=== PATIENT | female | born 1970 | race American Indian/Alaskan Native ===

== ENCOUNTER 2017-03-04 09:09 | Outpatient (CLI) | payer BC ==
--- NOTE | 2017-03-04 10:07 | Mammography Report ---
Bilateral mammogram: Compared to 03/01/16. CAD study utilized. Findings: Bilateral dense breast parenchyma. No mass or microcalcification. Benign axillary nodes. Impression: Benign findings. Annual followup recommended. BI-RADS CATEGORY: 2 = Benign ACR BI-RADS MAMMOGRAPHIC CODES: 0 = Needs additional imaging evaluation; 1 = Negative; 2 = Benign; 3 = Probably benign; 4 = Suspicious; 5 = Malignant; 6 = Known biopsy-proven malignancy COMMENT: 1. Dense breast tissue, i.e., adenosis, fibrocystic changes, etc., may obscure an underlying neoplasm. 2. Approximately 10% of cancers are not detected with mammography. 3. A negative mammography report should not delay biopsy if a clinically suspicious mass is present. COMMENT: Patient follow-up letters are generated in [employer].
== END 2017-03-04 09:10 | disposition home or self-care (01) ==
LOC: MAMMO 09:09
PROVIDERS: ATTEND Obstetrics & Gynecology
DX: Z12.31 Encounter for screening mammogram for malignant neoplasm of breast (principal)
CPT/HCPCS: 77067; G0202

== ENCOUNTER 2018-12-29 19:09 | Emergency (ER) | payer BC ==
[2018-12-29] MEDS ORDERED: BOOSTRIX IM ONE ×2 (19:22→22:45)
[2018-12-29] MEDS ORDERED: IBUPROFEN PO ONE (19:22)
[2018-12-29] MEDS ORDERED: NACL 0.9% IR ONE (19:22)
--- NOTE | 2018-12-29 19:22 | Event Note ---
ED Screening Note ED Screening Note: RUNNING IN PARK LLE DOG BITE DOG NOT KNOWN NEEDS TDAP WOUND COVERED This initial assessment/diagnostic orders/clinical plan/treatment(s) is/are subject to change based on patients health status, clinical progression and re- assessment by fellow clinical providers in the ED. Further treatment and workup at subsequent clinical providers discretion. Patient/guardian urged not to elope from the ED as their condition may be serious if not clinically assessed and managed. Initial orders include:
[2018-12-29 19:47] VITALS: BP 131/75
[2018-12-29] MEDS ORDERED: PERCOCET 5/325 PO ONE (22:35)
[2018-12-29] MEDS ORDERED: RABAVERT RABIES VACCINE(PCEC) IM ONE (22:35)
[2018-12-29] MEDS ORDERED: ATIVAN PO ONE (22:35)
[2018-12-29] MEDS ORDERED: AUGMENTIN 875 MG PO ONE (22:35)
--- NOTE | 2018-12-29 23:03 | Emergency Department Report ---
ED Animal Bite HPI - General Chief Complaint: Animal Bite Stated Complaint: DOG BITE Time Seen by Provider: 12/29/18 19:21 Source: patient Mode of arrival: Ambulatory Limitations: No Limitations - History of Present Illness Initial Comments: 48-year-old -[place]alt[place] female presents to the emergency room for complaint of dog bite. Patient reports that she was in the park and she was attacked by unknown dog. Patient comes in with several lacerations/bite lennon to her left lower leg and one on her left buttocks. Patient reports no past medical history currently takes no medications on a daily basis and is allergic to Keflex. Patient reports is ABOUT 7 PM. PATIENT IS REQUESTING A TETANUS VACCINATION. Complaint: animal bite -: This evening Time: 18:00 Location: buttocks Left: Leg Animal: dog Animal Control Notified: No Description: unknown animal, immunizations unknown Mechanism: bite, scratch Pain Description: constant Severity scale (0 -10): 9 Context: unprovoked Associated Symptoms: bleeding - Related Data Patient Tetanus UTD: No Previous Rx's Medication Instructions Recorded Last Taken Type Acetaminophen/Codeine [Tylenol 1 tab PO Q6H PRN #12 tab 12/29/18 Unknown Rx /Codeine # 3 tab] Ciprofloxacin HCl [Ciprofloxacin 500 mg PO Q12HR 7 Days #14 tab 12/29/18 Unknown Rx TAB] Clindamycin [Clindamycin CAP] 150 mg PO Q8HR 7 Days #21 capsule 12/29/18 Unknown Rx Clindamycin [Clindamycin CAP] 300 mg PO Q8H 7 Days #21 cap 12/29/18 Unknown Rx Ibuprofen [Motrin 600 MG tab] 600 mg PO Q8H PRN #30 tablet 12/29/18 Unknown Rx Allergies Allergy/AdvReac Type Severity Reaction Status Date / Time cephalexin monohydrate Allergy Rash Unverified 03/01/16 09:21 [From Keflex] ED Review of Systems ROS: Stated complaint: DOG BITE Other details as noted in HPI Comment: All other systems reviewed and negative Skin: other (open wounds) ED Past Medical Hx - Past Medical History Previous Medical History?: No - Surgical History Past Surgical History?: Yes Additional Surgical History: D&C - Social History Smoking Status: Never Smoker Substance Use Type: None - Medications Home Medications: Home Medications Medication Instructions Recorded Confirmed Last Taken Type Acetaminophen/Codeine [Tylenol 1 tab PO Q6H PRN #12 tab 12/29/18 Unknown Rx /Codeine # 3 tab] Ciprofloxacin HCl [Ciprofloxacin 500 mg PO Q12HR 7 Days #14 tab 12/29/18 Unknown Rx TAB] Clindamycin [Clindamycin CAP] 150 mg PO Q8HR 7 Days #21 capsule 12/29/18 Unknown Rx Clindamycin [Clindamycin CAP] 300 mg PO Q8H 7 Days #21 cap 12/29/18 Unknown Rx Ibuprofen [Motrin 600 MG tab] 600 mg PO Q8H PRN #30 tablet 12/29/18 Unknown Rx ED Physical Exam - General Limitations: No Limitations General appearance: alert, in no apparent distress - Head Head exam: Present: atraumatic, normocephalic - Eye Eye exam: Present: normal appearance - ENT ENT exam: Present: mucous membranes moist - Neck Neck exam: Present: normal inspection - Neurological Exam Neurological exam: Present: alert, oriented X3 - Psychiatric Psychiatric exam: Present: normal affect, normal mood - Skin Skin exam: Present: warm, dry, intact, normal color. Absent: rash - Expanded Skin Exam Expanded Type of lesion: Present: laceration, bite/sting Distribution of rash: LLE Description of rash: Present: other (multiple lacerations and bite lennon.) ED Course Vital Signs 12/29/18 19:43 Temperature 98.6 F Pulse Rate 94 H Respiratory 16 Rate Blood Pressure 131/75 O2 Sat by Pulse 100 Oximetry Critical care attestation.: If time is entered above; I have spent that time in minutes in the direct care of this critically ill patient, excluding procedure time. ED Disposition Clinical Impression: Dog bite of extremity Disposition: DC-01 TO HOME OR SELFCARE Is pt being admited?: No Does the pt Need Aspirin: No Condition: Stable Additional Instructions: Please follow-up with your primary care provider or health department in 3 days to have units of rabies vaccination and then he will need to follow up in 7 days from initial date of bite and then 14 days. Please follow here: 01/01/1901/05/19 01/12/19 Complete antibiotics as prescribed and pain medication as needed. Prescriptions: Ciprofloxacin HCl [Ciprofloxacin TAB] 500 mg PO Q12HR 7 Days #14 tab Clindamycin [Clindamycin CAP] 150 mg PO Q8HR 7 Days #21 capsule Clindamycin [Clindamycin CAP] 300 mg PO Q8H 7 Days #21 cap Ibuprofen [Motrin 600 MG tab] 600 mg PO Q8H PRN #30 tablet PRN Reason: Pain Acetaminophen/Codeine [Tylenol /Codeine # 3 tab] 1 tab PO Q6H PRN #12 tab PRN Reason: Pain , Severe (7-10) Referrals: MATHIEU GRIER MD [Primary Care Provider] - 3-5 Days Forms: Work/School Release Form(ED) Medical Decision Making - Radiology Data Radiology results: report reviewed Patient: ROSSY MG MR#: [id number] : 1970 Acct:[id number] Age/Sex: 48 / F ADM Date: 12/29/18 Loc: ED Attending Dr: Ordering Physician: GABY TORRE Date of Service: 12/29/18 Procedure(s): XR tibia fibula 2V LT Accession Number(s): [id number] cc: GABY TORRE Fluoro Time In Minutes: PROCEDURE: XR TIBIA FIBULA 2V LT TECHNIQUE: Left tibia and fibula radiographs, AP and lateral views. HISTORY: dog bite COMPARISONS: None. FINDINGS: Fracture (s) and/or Dislocation(s): None. Joint space(s): Normal. Soft tissues: Irregular lacerations are noted involving the proximal lower leg. Bone mineralization: Normal. Foreign bodies: None. IMPRESSION: Soft tissue lacerations.. This document is electronically signed by Carol Rolon MD., December 29 2018 11:08:03 PM ET Transcribed By: [facility] Dictated By: CAROL ROLON Electronically Authenticated By: CAROL ROLON Signed Date/Time: 12/29/182309 DD/ 03 TD/TT: 12/29/182303 Patient: ROSSY MG MR#: [id number] : 1970 Acct:[id number] Age/Sex: 48 / F ADM Date: 12/29/18 Loc: ED Attending Dr: Ordering Physician: GABY TORRE Date of Service: 12/29/18 Procedure(s): XR hip 2-3V LT Accession Number(s): [id number] cc: GABY TORRE Fluoro Time In Minutes: PROCEDURE: XR HIP 2-3V LT TECHNIQUE: Left hip radiographs, 2 views. HISTORY: dog bite COMPARISONS: None FINDINGS: Fracture (s) and/or Dislocation(s): None Joint space(s): Normal Soft tissues: Normal Bone mineralization: Normal Foreign bodies: None IMPRESSION: Normal Examination This document is electronically signed by Carol Rolon MD., December 29 2018 11:06:51 PM ET Transcribed By: [facility] Dictated By: CAROL ROLON Electronically Authenticated By: CAROL ROLON Signed Date/Time: 12/29/18 2309 DD/ TD/TT: 12/29/18 2252
--- NOTE | 2018-12-29 23:09 | XRay Report ---
PROCEDURE: XR HIP 2-3V LT TECHNIQUE: Left hip radiographs, 2 views. HISTORY: dog bite COMPARISONS: None FINDINGS: Fracture (s) and/or Dislocation(s): None Joint space(s): Normal Soft tissues: Normal Bone mineralization: Normal Foreign bodies: None IMPRESSION: Normal Examination This document is electronically signed by Rony Rolon MD., December 29 2018 11:06:51 PM ET
--- NOTE | 2018-12-29 23:10 | XRay Report ---
PROCEDURE: XR TIBIA FIBULA 2V LT TECHNIQUE: Left tibia and fibula radiographs, AP and lateral views. HISTORY: dog bite COMPARISONS: None. FINDINGS: Fracture (s) and/or Dislocation(s): None. Joint space(s): Normal. Soft tissues: Irregular lacerations are noted involving the proximal lower leg. Bone mineralization: Normal. Foreign bodies: None. IMPRESSION: Soft tissue lacerations.. This document is electronically signed by Rony Rolon MD., December 29 2018 11:08:03 PM ET
== END 2018-12-30 00:10 | disposition home or self-care (01) ==
LOC: ED 19:09
DX: S81.852A Open bite, left lower leg, initial encounter (principal); Z88.1 Allergy status to other antibiotic agents; Z79.899 Other long term (current) drug therapy; W54.0XXA Bitten by dog, initial encounter; Y93.89 Activity, other specified; Y92.89 Other specified places as the place of occurrence of the external cause; Y99.8 Other external cause status
CPT/HCPCS: 90375; 90471; 90472; 90675; 90715; 96372; 99283

== ENCOUNTER 2019-01-02 14:06 | Emergency (ER) | payer BC ==
--- NOTE | 2019-01-02 14:14 | Event Note ---
ED Screening Note ED Screening Note: here for 2nd rabies This initial assessment/diagnostic orders/clinical plan/treatment(s) is/are subject to change based on patients health status, clinical progression and re- assessment by fellow clinical providers in the ED. Further treatment and workup at subsequent clinical providers discretion. Patient/guardian urged not to elope from the ED as their condition may be serious if not clinically assessed and managed. Initial orders include:
--- NOTE | 2019-01-02 14:45 | Emergency Department Report ---
ED Recheck HPI - General Chief Complaint: Animal Bite Stated Complaint: RABIE SHOT Time Seen by Provider: 01/02/19 14:12 Source: patient Mode of arrival: Ambulatory Limitations: No Limitations - History of Present Illness Initial Comments: Here for 2nd rabies injection. Could not find in community. - Related Data Previous Rx's Medication Instructions Recorded Last Taken Type Acetaminophen/Codeine [Tylenol 1 tab PO Q6H PRN #12 tab 12/29/18 Unknown Rx /Codeine # 3 tab] Ciprofloxacin HCl [Ciprofloxacin 500 mg PO Q12HR 7 Days #14 tab 12/29/18 Unknown Rx TAB] Clindamycin [Clindamycin CAP] 150 mg PO Q8HR 7 Days #21 capsule 12/29/18 Unknown Rx Clindamycin [Clindamycin CAP] 300 mg PO Q8H 7 Days #21 cap 12/29/18 Unknown Rx Ibuprofen [Motrin 600 MG tab] 600 mg PO Q8H PRN #30 tablet 12/29/18 Unknown Rx Allergies Allergy/AdvReac Type Severity Reaction Status Date / Time cephalexin monohydrate Allergy Rash Verified 01/05/19 12:04 [From Keflex] ED Review of Systems ROS: Stated complaint: RABIE SHOT Other details as noted in HPI Comment: All other systems reviewed and negative ED Past Medical Hx - Past Medical History Previous Medical History?: No - Surgical History Past Surgical History?: Yes Additional Surgical History: D&C - Family History Family history: no significant - Social History Smoking Status: Never Smoker Substance Use Type: None - Medications Home Medications: Home Medications Medication Instructions Recorded Confirmed Last Taken Type Acetaminophen/Codeine [Tylenol 1 tab PO Q6H PRN #12 tab 12/29/18 Unknown Rx /Codeine # 3 tab] Ciprofloxacin HCl [Ciprofloxacin 500 mg PO Q12HR 7 Days #14 tab 12/29/18 Unknown Rx TAB] Clindamycin [Clindamycin CAP] 150 mg PO Q8HR 7 Days #21 capsule 12/29/18 Unknown Rx Clindamycin [Clindamycin CAP] 300 mg PO Q8H 7 Days #21 cap 12/29/18 Unknown Rx Ibuprofen [Motrin 600 MG tab] 600 mg PO Q8H PRN #30 tablet 12/29/18 Unknown Rx ED Physical Exam - General Limitations: No Limitations General appearance: alert, in no apparent distress - Head Head exam: Present: atraumatic - Eye Eye exam: Present: normal appearance - ENT ENT exam: Present: mucous membranes moist - Cardiovascular Cardiovascular Exam: Present: regular rate - Rectal Rectal exam: Present: deferred - Back Exam Back exam: Present: normal inspection - Neurological Exam Neurological exam: Present: alert, oriented X3 ED Recheck MDM - Core Measures Measure Exclusions: not indicated - Medical Decision Making rabies no 2 by RN pt tolerated first injections without difficulty VSS- RN asked to document dc home with dc plan of care Critical care attestation.: If time is entered above; I have spent that time in minutes in the direct care of this critically ill patient, excluding procedure time. ED Disposition Clinical Impression: Rabies exposure, Rabies, need for prophylactic vaccination against Disposition: DC-01 TO HOME OR SELFCARE Is pt being admited?: No Does the pt Need Aspirin: No Condition: Stable Referrals: RICKI MCCLENDON MD [Primary Care Provider] - 3-5 Days
[2019-01-02] MEDS ORDERED: RABAVERT RABIES VACCINE(PCEC) IM ONE (14:55)
== END 2019-01-02 15:30 | disposition home or self-care (01) ==
LOC: ED 14:06
DX: S81.852A Open bite, left lower leg, initial encounter (principal); Z98.890 Other specified postprocedural states; Z88.1 Allergy status to other antibiotic agents; W54.0XXA Bitten by dog, initial encounter; Y93.89 Activity, other specified; Y92.89 Other specified places as the place of occurrence of the external cause; Y99.8 Other external cause status
CPT/HCPCS: 90471; 90675

== ENCOUNTER 2019-01-05 12:03 | Emergency (ER) | payer BC ==
[2019-01-05 12:13] VITALS: BP 131/75
--- NOTE | 2019-01-05 12:15 | Event Note ---
ED Screening Note Date of service: 01/05/19 Time: 12:12 ED Screening Note: This is a 48 y.o. F. that presents to the ER for continued rabies vaccine. Patient was bitten by a dog last Tuesday and started treatment that day. She was given 2nd treatment Tuesday. She called multiple health departments and told they don't carry vaccines. Denies new symptoms. This initial assessment/diagnostic orders/clinical plan/treatment(s) is/are subject to change based on patients health status, clinical progression and re- assessment by fellow clinical providers in the ED. Further treatment and workup at subsequent clinical providers discretion. Patient/guardian urged not to elope from the ED as their condition may be serious if not clinically assessed and managed. Initial orders include: ACC for further evaluation.
--- NOTE | 2019-01-05 12:37 | Emergency Department Report ---
ED Recheck HPI - General Chief Complaint: Recheck/Abnormal Lab/Rx Stated Complaint: RABIE SHOT Time Seen by Provider: 01/05/19 12:12 Source: patient Mode of arrival: Ambulatory Limitations: No Limitations - History of Present Illness Initial Comments: This is a 48 y.o. F. that presents to the ER for continued rabies vaccine. Patient was bitten by a dog last Tuesday and started treatment that day. She was given 2nd treatment Tuesday. She called multiple health departments and told they don't carry vaccines. Denies new symptoms. Complaint: wound re-check Initial Visit For: animal bite Returns Today for: wound recheck, rabies shot Associated Symptoms: none - Related Data Previous Rx's Medication Instructions Recorded Last Taken Type Acetaminophen/Codeine [Tylenol 1 tab PO Q6H PRN #12 tab 12/29/18 Unknown Rx /Codeine # 3 tab] Ciprofloxacin HCl [Ciprofloxacin 500 mg PO Q12HR 7 Days #14 tab 12/29/18 Unknown Rx TAB] Clindamycin [Clindamycin CAP] 150 mg PO Q8HR 7 Days #21 capsule 12/29/18 Unknown Rx Clindamycin [Clindamycin CAP] 300 mg PO Q8H 7 Days #21 cap 12/29/18 Unknown Rx Ibuprofen [Motrin 600 MG tab] 600 mg PO Q8H PRN #30 tablet 12/29/18 Unknown Rx Allergies Allergy/AdvReac Type Severity Reaction Status Date / Time cephalexin monohydrate Allergy Rash Verified 01/05/19 12:04 [From Keflex] ED Review of Systems ROS: Stated complaint: RABIE SHOT Other details as noted in HPI Comment: All other systems reviewed and negative ED Past Medical Hx - Surgical History Additional Surgical History: D&C - Social History Smoking Status: Never Smoker - Medications Home Medications: Home Medications Medication Instructions Recorded Confirmed Last Taken Type Acetaminophen/Codeine [Tylenol 1 tab PO Q6H PRN #12 tab 12/29/18 Unknown Rx /Codeine # 3 tab] Ciprofloxacin HCl [Ciprofloxacin 500 mg PO Q12HR 7 Days #14 tab 12/29/18 Unknown Rx TAB] Clindamycin [Clindamycin CAP] 150 mg PO Q8HR 7 Days #21 capsule 12/29/18 Unknown Rx Clindamycin [Clindamycin CAP] 300 mg PO Q8H 7 Days #21 cap 12/29/18 Unknown Rx Ibuprofen [Motrin 600 MG tab] 600 mg PO Q8H PRN #30 tablet 12/29/18 Unknown Rx ED Physical Exam - General Limitations: No Limitations General appearance: alert, in no apparent distress - Head Head exam: Present: atraumatic, normocephalic - Eye Eye exam: Present: normal appearance - Neurological Exam Neurological exam: Present: alert, oriented X3, normal gait - Psychiatric Psychiatric exam: Present: normal affect, normal mood - Skin Skin exam: Present: warm, dry, intact ED Course Vital Signs 01/05/19 12:12 Temperature 97.9 F Pulse Rate 72 Respiratory 18 Rate Blood Pressure 131/75 O2 Sat by Pulse 97 Oximetry ED Recheck MDM - Differential Diagnosis Wound Recheck - Medical Decision Making 48-year-old female comes in for her third rabies vaccination. Critical care attestation.: If time is entered above; I have spent that time in minutes in the direct care of this critically ill patient, excluding procedure time. ED Disposition Clinical Impression: Rabies exposure Disposition: DC-01 TO HOME OR SELFCARE Is pt being admited?: No Does the pt Need Aspirin: No Condition: Stable Additional Instructions: Continue with your antibiotics as prescribed. Please follow up 01/12/19.
[2019-01-05] MEDS: RABAVERT RABIES VACCINE(PCEC) IM ONE ×2 (13:10→13:13)
== END 2019-01-05 13:10 | disposition home or self-care (01) ==
LOC: ED 12:03
DX: Z23 Encounter for immunization (principal)
CPT/HCPCS: 90471; 90675; 99281

== ENCOUNTER 2019-01-10 12:34 | Outpatient (CLI) | payer BC ==
--- NOTE | 2019-01-10 15:52 | Ultrasound Report ---
TRANSABDOMINAL PELVIC AND TRANSVAGINAL ULTRASOUND HISTORY: N93.9 ABNORMAL UTERINE AND VAGINAL BLEDDING COMPARISON: None. TECHNIQUE: Routine transabdominal and transvaginal pelvic ultrasound with color Doppler interrogation was performed. FINDINGS: Uterus: The uterus is anteverted. The uterus measures 8.5 x 4.3 x 5.6 cm. A 1 cm hypoechoic intramura l fibroid is identified in the anterior wall. The cervix is unremarkable. Endometrium: Normal in thickness. 10 mm. Right Ovary: The right ovary measures 4.9 x 2.5 x 4.4 cm. A 2.7 cm simple cyst is identified. Left Ovary: Normal size, blood flow and appearance measuring 2.8 x 1.7 x 1.1 cm. Additional findings: Transvaginal exam was performed for better delineation of the endometrium and ov uriah. IMPRESSION 1 cm intramural fibroid in the anterior wall. 2.7 cm right ovarian cyst. Signer Name: Louie Bell Jr, MD Signed: 01/10/2019 3:48 PM Workstation Name: [id number]
== END 2019-01-10 12:35 | disposition home or self-care (01) ==
LOC: US 12:34
PROVIDERS: ATTEND Obstetrics & Gynecology
DX: D25.1 Intramural leiomyoma of uterus (principal); N83.201 Unspecified ovarian cyst, right side
CPT/HCPCS: 76830; 76856

== ENCOUNTER 2019-01-12 10:00 | Emergency (ER) | payer BC ==
--- NOTE | 2019-01-12 10:23 | Emergency Department Report ---
ED Recheck HPI - General Chief Complaint: Medical Clearance Stated Complaint: FOLLOWUP Time Seen by Provider: 01/12/19 10:06 Source: patient Mode of arrival: Ambulatory Limitations: No Limitations - History of Present Illness Initial Comments: PT IS WELL KNOWN TO US. 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 SHE IS HERE FOR HER FINAL INJECTION. SHE HAS TOLERATED OTHERS WELL VSS NAD - Related Data Previous Rx's Medication Instructions Recorded Last Taken Type Acetaminophen/Codeine [Tylenol 1 tab PO Q6H PRN #12 tab 12/29/18 Unknown Rx /Codeine # 3 tab] Ciprofloxacin HCl [Ciprofloxacin 500 mg PO Q12HR 7 Days #14 tab 12/29/18 Unknown Rx TAB] Clindamycin [Clindamycin CAP] 150 mg PO Q8HR 7 Days #21 capsule 12/29/18 Unknown Rx Clindamycin [Clindamycin CAP] 300 mg PO Q8H 7 Days #21 cap 12/29/18 Unknown Rx Ibuprofen [Motrin 600 MG tab] 600 mg PO Q8H PRN #30 tablet 12/29/18 Unknown Rx Allergies Allergy/AdvReac Type Severity Reaction Status Date / Time cephalexin monohydrate Allergy Rash Verified 01/12/19 10:05 [From Keflex] ED Review of Systems ROS: Stated complaint: FOLLOWUP Other details as noted in HPI Comment: All other systems reviewed and negative ED Past Medical Hx - Past Medical History Previous Medical History?: No - Surgical History Additional Surgical History: D&C - Social History Smoking Status: Never Smoker Substance Use Type: None - Medications Home Medications: Home Medications Medication Instructions Recorded Confirmed Last Taken Type Acetaminophen/Codeine [Tylenol 1 tab PO Q6H PRN #12 tab 12/29/18 Unknown Rx /Codeine # 3 tab] Ciprofloxacin HCl [Ciprofloxacin 500 mg PO Q12HR 7 Days #14 tab 12/29/18 Unknown Rx TAB] Clindamycin [Clindamycin CAP] 150 mg PO Q8HR 7 Days #21 capsule 12/29/18 Unknown Rx Clindamycin [Clindamycin CAP] 300 mg PO Q8H 7 Days #21 cap 12/29/18 Unknown Rx Ibuprofen [Motrin 600 MG tab] 600 mg PO Q8H PRN #30 tablet 12/29/18 Unknown Rx ED Physical Exam - General Limitations: No Limitations General appearance: alert - Head Head exam: Present: normocephalic - Eye Eye exam: Present: normal appearance - ENT ENT exam: Present: mucous membranes moist - Neck Neck exam: Present: normal inspection - Cardiovascular Cardiovascular Exam: Present: regular rate - Extremities Exam Extremities exam: Present: normal inspection - Back Exam Back exam: Present: normal inspection - Neurological Exam Neurological exam: Present: alert, oriented X3 ED Course Vital Signs 01/12/19 10:11 Temperature 98.0 F Pulse Rate 61 Respiratory 16 Rate Blood Pressure 111/61 O2 Sat by Pulse 100 Oximetry ED Recheck MDM - Core Measures Measure Exclusions: not indicated - Medical Decision Making HERE FOR 3RD RABIES INOCULATION SHE HAS TOLERATED OTHER WELL. Vital Signs 01/12/19 10:11 Temperature 98.0 F Pulse Rate 61 Respiratory 16 Rate Blood Pressure 111/61 O2 Sat by Pulse 100 Oximetry Critical care attestation.: If time is entered above; I have spent that time in minutes in the direct care of this critically ill patient, excluding procedure time. ED Disposition Clinical Impression: Rabies, need for prophylactic vaccination against Disposition: DC-01 TO HOME OR SELFCARE Is pt being admited?: No Does the pt Need Aspirin: No Condition: Stable Time of Disposition: 10:23
[2019-01-12] MEDS ORDERED: RABAVERT RABIES VACCINE(PCEC) IM ONE (11:00)
[2019-01-12 11:25] VITALS: BP 110/60
== END 2019-01-12 11:24 | disposition home or self-care (01) ==
LOC: ED 10:00
DX: Z29.14 Encounter for prophylactic rabies immune globulin (principal); Z88.1 Allergy status to other antibiotic agents
CPT/HCPCS: 90471; 90675; 99282

== ENCOUNTER 2019-01-17 14:59 | Outpatient (CLI) | payer BC ==
--- NOTE | 2019-01-17 15:41 | Vascular Lab Report ---
DUPLEX DOPPLER LOWER EXTREMITY VEINS, LEFT INDICATION: Left lower extremity swelling for 2 weeks, dog bite, evaluate for DVT. TECHNIQUE: Duplex doppler imaging was performed through the veins of the left lower extremity using venous compr ession and other maneuvers. COMPARISON: No relevant prior imaging study available. FINDINGS: Left Common femoral vein: Negative. Left Superficial femoral vein: Negative. Left Popliteal vein: Negative. Left Calf veins: Negative. Additional findings: None.. IMPRESSION: No sonographic evidence for DVT in the left lower extremity. Signer Name: Louie Bell Jr, MD Signed: 01/17/2019 3:37 PM Workstation Name: [id number]
== END 2019-01-17 15:00 | disposition home or self-care (01) ==
LOC: VAS 14:59
PROVIDERS: ATTEND Internal Medicine
DX: R22.42 Localized swelling, mass and lump, left lower limb (principal); W54.0XXA Bitten by dog, initial encounter

== ENCOUNTER 2019-01-25 07:57 | Outpatient (CLI) | payer BC ==
[2019-01-25] MEDS ORDERED: XYLOCAINE TOPICAL 4% TP ONE (09:00)
== END 2019-01-25 07:58 | disposition home or self-care (01) ==
LOC: WOUND 07:57
PROVIDERS: ATTEND Surgery
DX: L97.222 Non-pressure chronic ulcer of left calf with fat layer exposed (principal)
CPT/HCPCS: 11042; G0463; 99214

== ENCOUNTER 2019-02-01 08:00 | Outpatient (CLI) | payer BC | END 2019-02-01 08:01 | disposition home or self-care (01) | LOC: WOUND 08:00 | PROVIDERS: ATTEND Surgery | DX: L97.222 Non-pressure chronic ulcer of left calf with fat layer exposed (principal) ==

== ENCOUNTER 2019-02-08 07:59 | Outpatient (CLI) | payer BC | END 2019-02-08 08:00 | disposition home or self-care (01) | LOC: WOUND 07:59 | PROVIDERS: ATTEND Surgery | DX: L97.222 Non-pressure chronic ulcer of left calf with fat layer exposed (principal) ==

== ENCOUNTER 2019-02-15 08:01 | Outpatient (CLI) | payer BC | END 2019-02-15 08:02 | disposition home or self-care (01) | LOC: WOUND 08:01 | PROVIDERS: ATTEND Surgery | DX: L97.222 Non-pressure chronic ulcer of left calf with fat layer exposed (principal) | CPT/HCPCS: 99213; G0463 ==

== ENCOUNTER 2019-03-22 09:36 | Outpatient (CLI) | payer BC ==
--- NOTE | 2019-03-22 14:40 | Mammography Report ---
DIGITAL SCREENING MAMMOGRAM WITH CAD, 03/22/2019 INDICATION: Routine screening mammography. TECHNIQUE: Digital bilateral 2D mammography was obtained in the craniocaudal and mediolateral obliq ue projections. This examination was interpreted with the benefit of Computer-Aided Detection analysi s. COMPARISON: 03/21/2018 FINDINGS: Breast Density: The breasts are heterogeneously dense, which may obscure small masses. There is no evidence of dominant mass, suspicious calcifications or architectural distortion in eithe r breast. IMPRESSION: No mammographic evidence of malignancy. Follow up recommendation: Routine yearly BI-RADS Category 1: Negative. A "normal" or negative report should not discourage follow up or biopsy of a clinically significant f inding. A written summary of these findings will be mailed to the patient. The patient will be entered into a mammography reporting system which will generate a reminder letter for the patient's next appointmen t at the appropriate interval. The [employer] recommends yearly mammograms starting at age 40 and continuing as l veronique as a woman is in good health. Breast MRI is recommended for women with an approximate 20-25% or greater lifetime risk of breast cancer, including women with a strong family history of breast or ova brayden cancer or who have been treated for Hodgkin's disease. Signer Name: Jean Carlos Campbell MD Signed: 03/22/2019 2:35 PM Workstation Name: [id number]
== END 2019-03-22 09:37 | disposition home or self-care (01) ==
LOC: MAMMO 09:36
PROVIDERS: ATTEND Obstetrics & Gynecology
DX: Z12.31 Encounter for screening mammogram for malignant neoplasm of breast (principal)
CPT/HCPCS: 77067

== ENCOUNTER 2019-08-31 14:28 | Outpatient (CLI) | payer BC ==
--- NOTE | 2019-08-31 15:45 | Vascular Lab Report ---
. DUPLEX DOPPLER LOWER EXTREMITY VEINS, LEFT INDICATION: Left lower extremity swelling since dogbite last year. TECHNIQUE: Duplex doppler imaging was performed through the veins of the left lower extremity using venous compression and other maneuvers. COMPARISON: No relevant prior imaging study available. FINDINGS: Left Common femoral vein: Negative. Left Superficial femoral vein: Negative. Left Popliteal vein: Negative. Left Calf veins: Negative. Additional findings: None.. IMPRESSION: No sonographic evidence for DVT in the left lower extremity. Signer Name: Louie Bell Jr, MD Signed: 08/31/2019 3:41 PM Workstation Name: [id number]
== END 2019-08-31 14:29 | disposition home or self-care (01) ==
LOC: VAS 14:28
PROVIDERS: ATTEND Internal Medicine
DX: M79.89 Other specified soft tissue disorders (principal)

== ENCOUNTER 2020-03-24 09:01 | Outpatient (CLI) | payer BC ==
--- NOTE | 2020-03-24 12:07 | Mammography Report ---
DIGITAL SCREENING MAMMOGRAM WITH CAD, 03/24/2020 INDICATION: Routine screening mammography. TECHNIQUE: Digital bilateral 2D mammography was obtained in the craniocaudal and mediolateral obliq ue projections. This examination was interpreted with the benefit of Computer-Aided Detection analysi s. COMPARISON: 03/22/2019, 03/21/2018 FINDINGS: Breast Density: The breasts are extremely dense, which lowers the sensitivity of mammography. There is no evidence of dominant mass, suspicious calcifications or architectural distortion in eithe r breast. No interval change. IMPRESSION: No evidence of malignancy. Follow up recommendation: Routine yearly BI-RADS Category 1: Negative. A "normal" or negative report should not discourage follow up or biopsy of a clinically significant f inding. A written summary of these findings will be mailed to the patient. The patient will be entered into a mammography reporting system which will generate a reminder letter for the patient's next appointmen t at the appropriate interval. The [employer] recommends yearly mammograms starting at age 40 and continuing as l veronique as a woman is in good health. Breast MRI is recommended for women with an approximate 20-25% or greater lifetime risk of breast cancer, including women with a strong family history of breast or ova brayden cancer or who have been treated for Hodgkin's disease. Signer Name: Roselyn Huerta MD Signed: 03/24/2020 12:03 PM Workstation Name: [email or web address]
== END 2020-03-24 09:02 | disposition home or self-care (01) ==
LOC: MAMMO 09:01
PROVIDERS: ATTEND Obstetrics & Gynecology
DX: Z12.31 Encounter for screening mammogram for malignant neoplasm of breast (principal)
CPT/HCPCS: 77067

== ENCOUNTER 2020-04-09 08:49 | Outpatient (CLI) | payer BC ==
[2020-04-09 09:37] LABS: Alanine Aminotransferase 28 units/L (7-56); Basophils % (Auto) 0.8 % (0.0-1.8); Blood Urea Nitrogen 8 mg/dL (7-17); Calcium 9.8 mg/dL (8.4-10.2); Chol/HDL Ratio 2.42 %; Eosinophils # (Auto) 0.1 K/mm3 (0.0-0.4); HDL Cholesterol 99 mg/dL (40-59); Hematocrit 36.4 % (30.3-42.9); Hemoglobin 12.1 gm/dl (10.1-14.3); Hemolysis Index 3; LDL Cholesterol,Direct 152 mg/dL (50-130); Lymphocytes # (Auto) 1.6 K/mm3 (1.2-5.4); Lymphocytes % (Auto) 39.8 % (13.4-35.0); Mean Corpuscular HGB Conc 33 % (30-34); Mean Corpuscular Volume 85 fl (79-97); Monocytes # (Auto) 0.3 K/mm3 (0.0-0.8); Monocytes % (Auto) 8.5 % (0.0-7.3); Platelet Count 204 K/mm3 (140-440)
[2020-04-09 09:41] LABS: BUN/Creatinine Ratio 11
== END 2020-04-09 08:50 | disposition home or self-care (01) ==
LOC: LAB 08:49
PROVIDERS: ATTEND Internal Medicine
DX: N91.2 Amenorrhea, unspecified (principal); Z78.0 Asymptomatic menopausal state
CPT/HCPCS: 36415; 80053; 80061; 83001; 84443; 85025

== ENCOUNTER 2020-10-15 08:26 | Outpatient (CLI) | payer BC ==
[2020-10-15 09:07] LABS: Hematocrit 36.3 % (30.3-42.9); Hemoglobin 12.1 gm/dl (10.1-14.3); Mean Corpuscular HGB Conc 33 % (30-34); Mean Corpuscular Volume 83 fl (79-97); Platelet Count 187 K/mm3 (140-440); Red Blood Count 4.38 M/mm3 (3.65-5.03); Red Cell Distribution Width 12.9 % (13.2-15.2)
[2020-10-15 09:18] LABS: Alanine Aminotransferase 12 units/L (7-56); Albumin 3.9 g/dL (3.9-5); BUN/Creatinine Ratio 11; Blood Urea Nitrogen 9 mg/dL (7-17); Calcium 9.3 mg/dL (8.4-10.2); Chol/HDL Ratio 2.54 %; HDL Cholesterol 91 mg/dL (40-59); Hemolysis Index 3; LDL Cholesterol,Direct 146 mg/dL (50-130)
== END 2020-10-15 08:27 | disposition home or self-care (01) ==
LOC: LAB 08:26
PROVIDERS: ATTEND Internal Medicine
DX: Z13.1 Encounter for screening for diabetes mellitus (principal); Z13.29 Encounter for screening for other suspected endocrine disorder; R94.6 Abnormal results of thyroid function studies; R68.89 Other general symptoms and signs; R79.89 Other specified abnormal findings of blood chemistry; E78.5 Hyperlipidemia, unspecified
CPT/HCPCS: 36415; 80053; 80061; 83036; 84443; 85027

== ENCOUNTER 2021-03-25 06:59 | Outpatient (CLI) | payer BC ==
--- NOTE | 2021-03-25 10:39 | Mammography Report ---
DIGITAL SCREENING MAMMOGRAM WITH CAD, 03/25/2021 CLINICAL INFORMATION / INDICATION: Routine screening mammography. TECHNIQUE: Digital bilateral 2D mammography was obtained in the craniocaudal and mediolateral obliqu e projections. This examination was interpreted with the benefit of Computer-Aided Detection analysis . COMPARISON: 03/22/2019 FINDINGS: Breast Density: The breasts are extremely dense, which lowers the sensitivity of mammography. No dominant mass, suspicious calcifications, or architectural distortion in either breast. No interval change. IMPRESSION: No mammographic evidence of malignancy. Follow up recommendation: Routine yearly BI-RADS Category 1: Negative. A "normal" or negative report should not discourage follow up or biopsy of a clinically significant f inding. A written summary of these findings will be mailed to the patient. The patient will be entered into a mammography reporting system which will generate a reminder letter for the patient's next appointmen t at the appropriate interval. The [employer] recommends yearly mammograms starting at age 40 and continuing as l veronique as a woman is in good health. Breast MRI is recommended for women with an approximate 20-25% or greater lifetime risk of breast cancer, including women with a strong family history of breast or ova brayden cancer or who have been treated for Hodgkin's disease. Signer Name: Roselyn Huerta MD Signed: 03/25/2021 10:34 AM Workstation Name: [email or web address]
== END 2021-03-25 07:00 | disposition home or self-care (01) ==
LOC: MAMMO 06:59
PROVIDERS: ATTEND Obstetrics & Gynecology
DX: Z12.31 Encounter for screening mammogram for malignant neoplasm of breast (principal)
CPT/HCPCS: 77067

== ENCOUNTER 2021-11-12 11:31 | Outpatient (CLI) | payer BC ==
--- NOTE | 2021-11-12 13:20 | XRay Report ---
RIGHT SHOULDER 3 VIEWS INDICATION / CLINICAL INFORMATION: Right shoulder pain for 2 months. COMPARISON: None available. FINDINGS: BONES / JOINT(S): There are minimal degenerative changes involving the acromioclavicular joint. There is no evidence of fracture, subluxation or destructive lesion. SOFT TISSUES: No significant abnormality. ADDITIONAL FINDINGS: The visualized right lung is clear. Incidental note is made of an azygos fissure . IMPRESSION: No acute findings. Signer Name: Eloy Mims MD Signed: 11/12/2021 1:16 PM Workstation Name: [id number]
== END 2021-11-12 11:32 | disposition home or self-care (01) ==
LOC: XRAY 11:31
PROVIDERS: ATTEND Orthopaedic Surgery
DX: M25.511 Pain in right shoulder (principal)

== ENCOUNTER 2021-11-18 08:13 | Outpatient (CLI) | payer BC ==
[2021-11-18 09:09] LABS: Basophils % (Auto) 1.3 % (0.0-1.8); Eosinophils # (Auto) 0.1 K/mm3 (0.0-0.4); Eosinophils % (Auto) 2.1 % (0.0-4.3); Hematocrit 36.7 % (30.3-42.9); Hemoglobin 11.9 gm/dl (10.1-14.3); Lymphocytes # (Auto) 1.5 K/mm3 (1.2-5.4); Lymphocytes % (Auto) 39.5 % (13.4-35.0); Mean Corpuscular HGB Conc 33 % (30-34); Mean Corpuscular Volume 83 fl (79-97); Monocytes # (Auto) 0.3 K/mm3 (0.0-0.8); Platelet Count 214 K/mm3 (140-440); Red Blood Count 4.44 M/mm3 (3.65-5.03); Red Cell Distribution Width 12.9 % (13.2-15.2)
[2021-11-18 09:32] LABS: Alanine Aminotransferase 19 units/L (7-56); Albumin 4.3 g/dL (3.9-5); BUN/Creatinine Ratio 20; Blood Urea Nitrogen 16 mg/dL (7-17); Calcium 9.2 mg/dL (8.4-10.2); Chol/HDL Ratio 2.73 %; HDL Cholesterol 87 mg/dL (40-59); Hemolysis Index 5; LDL Cholesterol,Direct 144 mg/dL (50-130)
== END 2021-11-18 08:14 | disposition home or self-care (01) ==
LOC: LAB 08:13
PROVIDERS: ATTEND Internal Medicine
DX: Z00.00 Encounter for general adult medical examination without abnormal findings (principal); R94.6 Abnormal results of thyroid function studies
CPT/HCPCS: 36415; 80053; 80061; 83036; 84443; 85025

== ENCOUNTER 2022-02-25 10:42 | Outpatient (CLI) | payer BC ==
--- NOTE | 2022-02-25 15:34 | Magnetic Resonance Report ---
MRI RIGHT SHOULDER WITHOUT CONTRAST INDICATION: M25.511 PAIN IN RT SHOULDER. COMPARISON: Right shoulder x-ray 11/12/2021 TECHNIQUE: Multisequence, multiplanar images were obtained. FINDINGS: ACROMIOCLAVICULAR JOINT: No significant abnormality. ACROMION: Type I SUPRASPINATUS: Tendinosis INFRASPINATUS: No significant abnormality. SUBSCAPULARIS: No significant abnormality. BICEPS TENDON, LONG HEAD: No significant abnormality. SUBACROMIAL/SUBDELTOID SPACE: Trace amount of bursal fluid GLENOID LABRUM: No significant abnormality. ARTICULAR CARTILAGE: No significant abnormality. JOINT SPACE AND CAPSULE: No significant abnormality. BONES: No significant bone marrow edema. No fracture. No osseous lesion. SUBCUTANEOUS SOFT TISSUES: No significant abnormality. ADDITIONAL FINDINGS: None. IMPRESSION: 1. Supraspinatus tendinosis with mild subacromial/subdeltoid bursitis Signer Name: Pola Mathis MD Signed: 02/25/2022 3:30 PM Workstation Name: [email or web address]
== END 2022-02-25 10:43 | disposition home or self-care (01) ==
LOC: MRI 10:42
PROVIDERS: ATTEND Orthopaedic Surgery
DX: S46.011A Strain of muscle(s) and tendon(s) of the rotator cuff of right shoulder, initial encounter (principal); X58.XXXA Exposure to other specified factors, initial encounter; Y93.89 Activity, other specified; Y92.89 Other specified places as the place of occurrence of the external cause; Y99.8 Other external cause status

== ENCOUNTER 2022-03-26 07:36 | Outpatient (CLI) | payer BC ==
--- NOTE | 2022-03-26 09:57 | Mammography Report ---
DIGITAL SCREENING MAMMOGRAM WITH CAD, 03/26/2022 CLINICAL INFORMATION / INDICATION: Routine screening mammography. TECHNIQUE: Digital bilateral 2D mammography was obtained in the craniocaudal and mediolateral obliqu e projections. This examination was interpreted with the benefit of Computer-Aided Detection analysis . COMPARISON: 03/25/2021, 03/24/2020 FINDINGS: Breast Density: The breasts are extremely dense, which lowers the sensitivity of mammography. No dominant mass, suspicious calcifications, or architectural distortion in either breast. There has been no significant interval change. IMPRESSION: No mammographic evidence of malignancy. Follow up recommendation: Routine yearly screening mammogram. BI-RADS Category 1: NEGATIVE A "normal" or negative report should not discourage follow up or biopsy of a clinically significant f inding. A written summary of these findings will be mailed to the patient. The patient will be entered into a mammography reporting system which will generate a reminder letter for the patient's next appointmen t at the appropriate interval. The [employer] recommends yearly mammograms starting at age 40 and continuing as l veronique as a woman is in good health. Breast MRI is recommended for women with an approximate 20-25% or greater lifetime risk of breast cancer, including women with a strong family history of breast or ova brayden cancer or who have been treated for Hodgkin's disease. Signer Name: Joe Anthony MD Signed: 03/26/2022 9:53 AM Workstation Name: [email or web address]
== END 2022-03-26 07:37 | disposition home or self-care (01) ==
LOC: MAMMO 07:36
PROVIDERS: ATTEND Obstetrics & Gynecology
DX: Z12.31 Encounter for screening mammogram for malignant neoplasm of breast (principal)
CPT/HCPCS: 77067